=== PATIENT | female | born 1985 | race Caucasian/White ===

== ENCOUNTER 2018-09-27 01:19 | Inpatient (IN) | payer BC ==
[2018-09-27] MEDS ORDERED: Lactated Ringer's 1,000 ML IV ONE (02:16)
--- NOTE | 2018-09-27 02:42 | OBADHP ---
Datetime: 09/27/2018 02:28 Admit Comment, IP Provider: Patient is a @ 40+ weeks with leaking and contractions. +FM. Patien t confirmed ruptured and 4cm in early labor. Patient denies antepartum issues, no medical problmes, n o surgical problems, no allergies, no medications VE=/-2, ruptured clear [id number] mod louis, +accels, decels TOCO= ctxning q 3-5 mins A/P 1. Patient in labor and ROM, 4cm 2. IVF, CBC, type and screen 3. Pt requests epidural for pain Pelvic Type - PN: Adequate Extremities - PN: Normal Abdomen - PN: Normal Back - PN: Normal Breast - PN: Normal Lungs - PN: Normal Heart - PN: Normal Thyroid - PN: Normal Neurologic - PN: Normal HEENT - PN: Normal General - PN: Normal FHR - Baseline A Provider: 140 Amniotic Fluid Color, Provider: Clear Membranes, Provider: Ruptured Contraction Comments Provider: Q 3-5 mins Vital Signs Provider: Reviewed; Within Normal Limits IP Chief Complaint: Uterine contractions; Suspected ruptured membranes NICHD Variability Prov Fetus A: Moderate 6-25bpm NICHD Accel Fetus A IP Provider: 15X15 NICHD Decel Fetus A IP Provider: None Dilatation, Provider: 4 Effacement, Provider: 50 Station, Provider: -2 Genitourinary Exam: Normal DTRs - PN: Normal EGA AdmitDate IP: 40.2 IP Adm Impression: Term, intrauterine IP Admit Plan: Admit to unit; Initiate labor protocol
[2018-09-27 02:43] LABS: BASO % 0.3 % (0.0-2.0); EOS % 0.4 % (0.0-4.0); HEMOGLOBIN 12.1 g/dL (12.0-16.0); LYMPH # 1.8 K/uL (1.0-4.3); LYMPH % 15.5 % (20.0-40.0); MEAN CELL VOLUME 82.7 fl (81.0-99.0); MEAN CORPUSCULAR HEMOGLOBIN 27.3 pg (27.0-31.0); MEAN PLATELET VOLUME 9.2 fl (7.2-11.7); MONO # 0.8 K/uL (0.0-0.8); MONO % 6.7 % (0.0-10.0); NEUT # 9.1 K/uL (1.8-7.0); NEUT % 77.1 % (50.0-75.0); RBC 4.44 Mil/uL (3.80-5.20); RED CELL DISTRIBUTION WIDTH 13.7 % (11.5-14.5); WHITE BLOOD COUNT 11.8 K/uL (4.8-10.8)
[2018-09-27] MEDS ORDERED: Fentanyl/Bupivacaine HCl 250 ML EPI ONE (02:59)
[2018-09-27] MEDS: Lactated Ringer's 1,000 ML IV SCH ×2 (03:38→10:30)
[2018-09-27] MEDS ORDERED: Oxytocin 30 UNIT 30 UNITS/500 ML BAG IV ONE ×2 (04:20→06:50)
--- NOTE | 2018-09-27 11:02 | OBPN ---
Datetime: 09/27/2018 09:04 IP Progress Impression: Normal progression of labor; Reassuring heart rate IP Procedures: Sterile Vag Exam IP Progress Plan: Continue present management; Augmentation Pool Provider: Positive Membranes, Provider: Ruptured Contraction Comments Provider: + FHR - Baseline A Provider: 140 Gestation - Est Wks by US: 40.2 Presentation-Admit: Vertex IP Progress Note Comment: S: Pating lying in bed comfortably. Pain well controlled s/p epidural. O: SVE (By Dr. Jerez) 3cm/50%/-3 A: 33 y/o female @ 40.2 wk IUP; fetus in cephalic position based on bedside U/S. Latent phas e of labor. Patient does not have pre-tash records w/ her. P: Cont. to titrate pitocin 2mls/hr every 30 mins until contractions 2-3 mins apart. SCDs for DVT prophylaxis. Will contact [facility] to obtain records. Case discussed w/ attending, Dr. Solitario Gagnon, [facility] OB HOSPITALIST NOTE: sign out rec'd... just rc'd records from Dr Tran's office. 40w GBS neg - latent phase...continue Pitocin augmentatoin...discussed labor/meds/risks and complicatoins wi th patient. She understands and her questoins answered. Vital Signs Provider: Reviewed; Within Normal Limits NICHD Accel Fetus A IP Provider: 15X15 FHR Category Provider Fetus A: Category I NICHD Variability Prov Fetus A: Moderate 6-25bpm Dilatation, Provider: 3 Effacement, Provider: 50 Station, Provider: -3 NICHD Decel Fetus A IP Provider: None Datetime: 09/27/2018 02:28 Amniotic Fluid Color, Provider: Clear
[2018-09-27] MEDS ORDERED: Sodium Chloride 0.9% 500 ML IV SCH (14:00)
[2018-09-27] MEDS ORDERED: Sodium Chloride 0.9% 1,000 ML IV SCH (14:00)
--- NOTE | 2018-09-27 15:47 | OBPN ---
Datetime: 09/27/2018 13:52 Gestation - Est Wks by US: 40.2 Vital Signs Provider: Reviewed; Within Normal Limits NICHD Decel Fetus A IP Provider: Early Datetime: 09/27/2018 13:24 IP Progress Impression: Normal progression of labor IP Procedures: Sterile Vag Exam IP Progress Plan: Continue present management FHR - Baseline A Provider: 125 IP Progress Note Comment: S: Patient reports feeling pressure; pain controlled w/ epidural. O: SVE (Chaperoned by Nurse Farzana) 5cm/75%/-3 A: 33 y/o female @ 40.2 wk IUP P: Cont. present care/augmentation mckayla Irene Case discussed w/ attending OB Attending note Aware of progress MAHNDO NICHD Accel Fetus A IP Provider: 15X15 FHR Category Provider Fetus A: Category I NICHD Variability Prov Fetus A: Moderate 6-25bpm Dilatation, Provider: 5 Effacement, Provider: 75 Station, Provider: -3
--- NOTE | 2018-09-27 15:49 | OBPN ---
Datetime: 09/27/2018 13:52 IP Progress Note Comment: S: Patient reports feeling pressure; pain controlled w/ epidural. O: [place] shows contractions Q3-4mins, NST: early decels present A: 33 y/o female @ 40.2 wk IUP P: IUPC inserted, start amnio infusion; 500mL bolus of normal saline over 1 hour _ 1L NS @ 125mL t hrough IUPC. Cont. Pit. Ruth Gagnon pgyi Case discussed w/ attending OB hospitalist note. With deceleations, pioticn at 6mi/h, discussion with pt...will place IUPC/st art amnioinfusion...carolineior progress/FHR NIK
--- NOTE | 2018-09-27 16:58 | OBPN ---
Datetime: 09/27/2018 16:54 IP Progress Impression: Reassuring heart rate IP Progress Plan: Continue present management; Augmentation Pool Provider: Positive Membranes, Provider: Ruptured Amniotic Fluid Color, Provider: Clear Contraction Comments Provider: 2-3m FHR - Baseline A Provider: 120 IP Progress Note Comment: She feels some pressure. resting on her side with peanut ball btwn her le gs A: Latent phase of labor PLAN: Pitocin at 8miu/h...amnioinfusion running. monitor progress NICHD Accel Fetus A IP Provider: 15X15 FHR Category Provider Fetus A: Category I NICHD Variability Prov Fetus A: Moderate 6-25bpm Dilatation, Provider: 5 Effacement, Provider: 80 Station, Provider: -2 NICHD Decel Fetus A IP Provider: None
--- NOTE | 2018-09-27 21:24 | OBPN ---
Datetime: 09/27/2018 20:35 IP Progress Impression: Reassuring heart rate IP Progress Plan: Augmentation Contraction Comments Provider: 2-3m FHR - Baseline A Provider: 140 IP Progress Note Comment: She feels more pain/pressure. She did not know that she could press butto n for epidural dosing. SVE 6cm [address] in place/amnioinfusion running at 125cc/h Pitocin at 14miu/h A: Active phase of labor re-assuring FHR tracing PLAN: continue to monitor labor progress NICHD Accel Fetus A IP Provider: 15X15 FHR Category Provider Fetus A: Category I NICHD Variability Prov Fetus A: Moderate 6-25bpm Dilatation, Provider: 6 Effacement, Provider: 80 Station, Provider: -2 NICHD Decel Fetus A IP Provider: None
[2018-09-27] MEDS ORDERED: Lidocaine 2% PF (10 ml) Amp ONE (22:04)
[2018-09-27] MEDS ORDERED: Bupivacaine HCl 0.5% PF (30 ml) Inj ONE (22:05)
[2018-09-27] MEDS ORDERED: Propofol 10 mg/ml Inj (20 ML) ONE (22:06)
[2018-09-27] MEDS ORDERED: Morphine 5 mg/10 ml preservative-free Inj(Duramorph) ONE (22:07)
[2018-09-27] MEDS ORDERED: ceFAZolin IV 1 gm in Dextrose 2 GM/100 ML BAG IVPB ONE (22:11)
[2018-09-27] MEDS ORDERED: ceFAZolin 1 GM in Sodium Chloride 0.9% 100 ML IVPB ONE ×2 (22:12→23:01)
--- NOTE | 2018-09-27 22:12 | OBPN ---
Datetime: 09/27/2018 21:55 IP Progress Impression: Arrest of dilatation/descent IP Informed Consent Obtain: Section Delivery; Risks, Benefits and Alternatives Discussed IP Progress Plan: Deliver- Section Contraction Comments Provider: 2-3m FHR - Baseline A Provider: 130 IP Fetus A Comments: one variable noted Presentation-Admit: Vertex IP Progress Note Comment: SHe had repetitive decelerations earlier. Pitocin stopped and re-started at half the dose (7miu/h )...She was placed in lateral position with peanut ball. A: Failure of dilatoin PLAN: condition, procedure (C/S), risks/complications explained to pt. She understood. Her quest oins answered. Informed consent obtained. NICHD Accel Fetus A IP Provider: 15X15 FHR Category Provider Fetus A: Category I NICHD Variability Prov Fetus A: Moderate 6-25bpm Dilatation, Provider: 6 Effacement, Provider: 80 Station, Provider: -2 NICHD Decel Fetus A IP Provider: Variable
[2018-09-27] MEDS ORDERED: ePHEDrine 50 mg/ml Inj ONE (22:16)
[2018-09-27] MEDS ORDERED: Phenylephrine 10 mg/ml Inj ONE (22:16)
[2018-09-27] MEDS: ceFAZolin IV 1 gm in Dextrose 1 GM/50 ML BAG IVPB ONE ×2 (22:20→22:22)
[2018-09-27] MEDS ORDERED: Oxycodone/Acetaminophen 5/325 mg Tab PO PRN ×2 (23:06)
[2018-09-27] MEDS ORDERED: ceFAZolin 1 GM in Sodium Chloride 0.9% 50 ML IVPB ONE (23:09)
[2018-09-27] MEDS: OXYTOCIN/0.9 % NS 20 UNIT/1,000 ML BAG IV SCH ×2 (23:11→23:15)
[2018-09-27] MEDS ORDERED: Benzocaine/Menthol (Cepacol) Lozenge PO PRN (23:39)
[2018-09-28] MEDS ORDERED: Oxycodone/Acetaminophen 5/325 mg Tab PO PRN (02:17)
[2018-09-28] MEDS ORDERED: Benzocaine/Menthol (Cepacol) Lozenge PO PRN (02:17)
[2018-09-28] MEDS ORDERED: Lactated Ringer's 1,000 ML IV SCH (02:17)
[2018-09-28] MEDS: Oxycodone/Acetaminophen 5/325 mg Tab PO PRN ×2 (02:32→21:55)
[2018-09-28] MEDS ORDERED: Simethicone 80 mg Chewtab PO SCH (04:00)
[2018-09-28] MEDS: Simethicone 80 mg Chewtab PO SCH ×3 (04:30→21:54)
[2018-09-28 06:19] LABS: HEMOGLOBIN 9.9 g/dL (12.0-16.0); MEAN CORPUSCULAR HEMOGLOBIN 27.8 pg (27.0-31.0); MEAN CORPUSCULAR HGB CONC 33.2 g/dL (33.0-37.0); RBC 3.54 Mil/uL (3.80-5.20); RED CELL DISTRIBUTION WIDTH 13.7 % (11.5-14.5); WHITE BLOOD COUNT 15.4 K/uL (4.8-10.8)
[2018-09-28] MEDS: Multivitamin With Minerals Tab PO SCH (08:47)
[2018-09-28] MEDS ORDERED: Multivitamin With Minerals Tab PO SCH (09:00)
--- NOTE | 2018-09-28 09:03 | OBDS ---
DELIVERY PERSONNEL Delivery Doctor: Meena Jerez DO Credit Product Analyst: Angelika Zuniga RN Anesthesiologist: Maxim Sin MD Resident: Dallas Driver MD MATERNAL INFORMATION Delivery Anesthesia: Spinal Medications in Delivery: pitocin 30units/500 ml, ancef 2 grams Estimated Blood Loss (ml): 800 Placenta Cultured: No Maternal Complications: None Provider Comments: Pre Op Dx: failure of descent Post Op Dx same / Occiput posterior Procedure: Primary LTCS via Pfannenstiel incision Surgeon: Dr Jerez Asst: Dr Kris Gonzalez OB fellow Anesth: Dr Sin Anesth: Epidural Findings: -live infant delivered from [facility] [place] - OP -Infant crying sponteneously 9,9 -Placenta delivered intact spontaneously -ovaries and tubes WNL grossly -All equipment sponges needles accounted for -EBL 800cc She remained stable throughout the procedure (Annotations: Data stored by [facility] on behalf of user) LABOR SUMMARY EDC: 09/25/2018 00:00 No. Babies in Womb: 1 Attempted: No Labor Anesthesia: Intrathecal LABOR INFORMATION Reason for Induction: Not Applicable Onset of Labor: 09/26/2018 15:00 Oxytocin: Augmentation Group B Beta Strep: Negative (Annotations: 09/02/2018) Antibiotics # of Doses: 0 Antibiotics Time of Last Dose: n/a Steroids Given: None Reason Steroids Not Administered: Not Applicable MEMBRANES Membranes Rupture Method: Spontaneous Rupture of Membranes: 09/26/2018 22:00 Length of Rupture (hrs): 24.70 Amniotic Fluid Color: Clear Amniotic Fluid Amount: Small Amniotic Fluid Odor: Normal STAGES OF LABOR Stage 3 hrs: 0 Stage 3 min: 1 Total Time in Labor hrs: 31 Total Time in Labor min: 43 CSECTION DELIVERY Primary Indication: Failure of Descent Secondary Indication: Other Other Secondary Indication: Occiput Posterior CSection Urgency: Elective CSection Incidence: Primary Labor: Labor Elective: Elective CSection Incision: Classical Uterine Closure: Double-layer closure BABY A INFORMATION Infant Delivery Date/Time: 09/27/2018 22:42 Method of Delivery: Born in Route : No : N/A Forceps: N/A Vacuum Extraction: N/A Shoulder Dystocia : No SHOULDER DYSTOCIA BABY A Infant Delivery Date/Time: 09/27/2018 22:42 PRESENTATION/POSITION BABY A Presentation: Cephalic Cephalic Presentation: Vertex Breech Presentation: N/A PLACENTA INFORMATION BABY A Placenta Delivery Time : 09/27/2018 22:43 Placenta Method of Delivery: Spontaneous Placenta Status: Delivered SCORES BABY A Heart Rate 1 min: >100 bpm Resp Effort 1 min: Good Cry Reflex Irritability 1 min: Cough or Sneeze or Pulls Away Muscle Tone 1 min: Active Motion Color 1 min: Body [place], Extremities Blue Resuscitation Effort 1 min: Tactile Stimulation SCORE 1 MIN: 9 Heart Rate 5 min: >100 bpm Resp Effort 5 min: Good Cry Reflex Irritability 5 min: Cough or Sneeze or Pulls Away Muscle Tone 5 min: Active Motion Color 5 min: Body [place], Extremities Blue Resuscitation Effort 5 min: Tactile Stimulation SCORE 5 MIN: 9 INFANT INFORMATION BABY A Gestational Age at Delivery: 40.2 Gestational Status: Term Outcome : Liveborn Infant Condition : Stable Sex: Male IDENTIFICATION/MEDS BABY A ID Band Number: [id number] ID Band Location: Left Leg; Left Arm WEIGHT/LENGTH BABY A Infant Birthweight (gms): 4000 Weight (lb): 8 Infant Weight (oz): 13 CORD INFORMATION BABY A No. Cord Vessels: 3 Nuchal Cord : N/A Cord Blood Taken: Yes Infant Suction: None ASSESSMENT BABY A Infant Complications: None Physical Findings at Delivery: Within Normal Limits Respirations: Appears Normal Balance Assembler/ALS Called : No Infant Care By: Jagruti Carlton RN/ Dr. Lucas Transferred To: Remains with Mother
--- NOTE | 2018-09-28 09:04 | OBDS ---
DELIVERY PERSONNEL Delivery Doctor: Meena Jerez DO Mail Order Clerk: Angelika Zuniga RN Anesthesiologist: Maxim Sin MD Resident: Dallas Driver MD MATERNAL INFORMATION Delivery Anesthesia: Spinal Medications in Delivery: pitocin 30units/500 ml, ancef 2 grams Estimated Blood Loss (ml): 800 Placenta Cultured: No Maternal Complications: None Provider Comments: Pre Op Dx: failure of descent Post Op Dx same / Occiput posterior Procedure: Primary LTCS via Pfannenstiel incision Surgeon: Dr Jerez Asst: Dr Kris Gonzalez OB fellow Anesth: Dr Sin Anesth: Epidural Findings: -live infant delivered from [facility] [place] - OP -Infant crying sponteneously 9,9 -Placenta delivered intact spontaneously -ovaries and tubes WNL grossly -All equipment sponges needles accounted for -EBL 800cc She remained stable throughout the procedure (Annotations: Data stored by [facility] on behalf of user) LABOR SUMMARY EDC: 09/25/2018 00:00 No. Babies in Womb: 1 Attempted: No Labor Anesthesia: Intrathecal LABOR INFORMATION Reason for Induction: Not Applicable Onset of Labor: 09/26/2018 15:00 Oxytocin: Augmentation Group B Beta Strep: Negative (Annotations: 09/02/2018) Antibiotics # of Doses: 0 Antibiotics Time of Last Dose: n/a Steroids Given: None Reason Steroids Not Administered: Not Applicable MEMBRANES Membranes Rupture Method: Spontaneous Rupture of Membranes: 09/26/2018 22:00 Length of Rupture (hrs): 24.70 Amniotic Fluid Color: Clear Amniotic Fluid Color: Clear Amniotic Fluid Color: Clear Amniotic Fluid Amount: Small Amniotic Fluid Odor: Normal STAGES OF LABOR Stage 3 hrs: 0 Stage 3 min: 1 Total Time in Labor hrs: 31 Total Time in Labor min: 43 CSECTION DELIVERY Primary Indication: Failure of Descent Secondary Indication: Other Other Secondary Indication: Occiput Posterior CSection Urgency: Elective CSection Incidence: Primary Labor: Labor Elective: Elective CSection Incision: Classical Uterine Closure: Double-layer closure BABY A INFORMATION Infant Delivery Date/Time: 09/27/2018 22:42 Method of Delivery: Born in Route : No : N/A Forceps: N/A Vacuum Extraction: N/A Shoulder Dystocia : No SHOULDER DYSTOCIA BABY A Infant Delivery Date/Time: 09/27/2018 22:42 PRESENTATION/POSITION BABY A Presentation: Cephalic Presentation: Cephalic Presentation: Cephalic Presentation: Cephalic Cephalic Presentation: Vertex Breech Presentation: N/A PLACENTA INFORMATION BABY A Placenta Delivery Time : 09/27/2018 22:43 Placenta Method of Delivery: Spontaneous Placenta Status: Delivered SCORES BABY A Heart Rate 1 min: >100 bpm Resp Effort 1 min: Good Cry Reflex Irritability 1 min: Cough or Sneeze or Pulls Away Muscle Tone 1 min: Active Motion Color 1 min: Body [place], Extremities Blue Resuscitation Effort 1 min: Tactile Stimulation SCORE 1 MIN: 9 Heart Rate 5 min: >100 bpm Resp Effort 5 min: Good Cry Reflex Irritability 5 min: Cough or Sneeze or Pulls Away Muscle Tone 5 min: Active Motion Color 5 min: Body [place], Extremities Blue Resuscitation Effort 5 min: Tactile Stimulation SCORE 5 MIN: 9 INFANT INFORMATION BABY A Gestational Age at Delivery: 40.2 Gestational Status: Term Outcome : Liveborn Infant Condition : Stable Sex: Male IDENTIFICATION/MEDS BABY A ID Band Number: [id number] ID Band Location: Left Leg; Left Arm WEIGHT/LENGTH BABY A Infant Birthweight (gms): 4000 Weight (lb): 8 Weight (oz): 13 CORD INFORMATION BABY A No. Cord Vessels: 3 Nuchal Cord : N/A Cord Blood Taken: Yes Suction: None ASSESSMENT BABY A Infant Complications: None Physical Findings at Delivery: Within Normal Limits Respirations: Appears Normal Carton Forming Machine Operator/ALS Called : No Care By: Jagruti Carlton RN/ Dr. Lucas Transferred To: Remains with Mother
[2018-09-29] MEDS: Oxycodone/Acetaminophen 5/325 mg Tab PO PRN ×3 (03:59→12:25)
[2018-09-29] MEDS: Simethicone 80 mg Chewtab PO SCH ×4 (04:00→22:15)
[2018-09-29] MEDS: Multivitamin With Minerals Tab PO SCH (08:12)
--- NOTE | 2018-09-29 17:17 | OBPPN ---
Datetime: 09/29/2018 07:01 PP Pain Prov: Within normal limits PP Nausea Prov: Denies PP Flatus Prov: Yes PP BM Prov: No PP Breasts Prov: Not Done PP Heart Prov: Normal PP Lungs Prov: Normal PP Abdomen/Uterus Prov: Normal PP Lochia Prov: Not Done PP Vulva/Perineum Prov: Not Done PP CVA Tenderness Prov: Normal PP Extremities Prov: Normal PP C/S Incision Prov: Normal PP Progress Prov: Normal PP Impression Prov: Normal progression PP Plan Prov: Continue present management PP Progress Note Prov: 33y/o , 40.2 wks S/P C section due to failure to decent POD2 Patient seen and evaluated at bedside. Abdominal pain is well controlled with pain medications. Fo ginny removed, dressing present. Advance diet as tolerated. Lochia similar to menses. Reports passing f latus but no BM yet. Denies fever, chills, nausea, vomiting, diarrhea, CP, SOB. w/o dif ficulties. O: VSS GEN: Patient is comfortable. In no acute distress. Cardio: S1S2, no murmurs, gallops or rubs. Lungs: clear air entry sounds b/l, no wheezing Abdomen: BS+, tenderness to palpation. Dressing removed, Incision C/D/I, Uterus is firm and at the level of the umbilicus EXT: No edema, calves non-tender to palpation Assessment/Plan: 33 y/o , 40.2 wks S/P C section on POD2. - SCDs for DVT prophylaxis, encouraged ambulating - Percocet and Ibuprofen 600 mg for pain - Senokot for constipation - Simethicone 80 mg Q6 hr - Continue to encourage and ambulating - f/u CBC post op: 9.9/29.7 - Anticipated D/C on 09/30/18 --- Dallas Driver MD PGY-1 The patient was seen with the resident I agree with the note Vital Signs Provider PP: Reviewed; Within Normal Limits Datetime: 09/28/2018 06:37 PP Comments Phys Exam Prov: Fundus firm under umbilicus Incision clean/dry/intact
[2018-09-30] MEDS: Simethicone 80 mg Chewtab PO SCH ×4 (05:18→12:20)
[2018-09-30] MEDS: Oxycodone/Acetaminophen 5/325 mg Tab PO PRN (08:47)
[2018-09-30] MEDS: Multivitamin With Minerals Tab PO SCH (08:48)
[2018-10-01 01:26] VITALS: BP 138/86; PULSE 78; RESP 20; TEMP 98.6; O2SAT 98
--- NOTE | 2018-10-02 11:09 | OBDS ---
DELIVERY PERSONNEL Delivery Doctor: Meena Jerez DO Cardiac Sonographer: Angelika Zuniga RN Anesthesiologist: Maxim Sin MD Resident: Dallas Driver MD MATERNAL INFORMATION Delivery Anesthesia: Spinal Medications in Delivery: pitocin 30units/500 ml, ancef 2 grams Estimated Blood Loss (ml): 800 Placenta Cultured: No Maternal Complications: None Provider Comments: Pre Op Dx: failure of dilation Post Op Dx same / Occiput posterior Procedure: Primary LTCS via Pfannenstiel incision Surgeon: Dr Jerez Asst: Dr Kris Gonzalez OB fellow Anesth: Dr Sin Anesth: Epidural Findings: -live delivered from [facility] [place] - OP -Infant crying sponteneously 9,9 -Placenta delivered intact spontaneously -ovaries and tubes WNL grossly -All equipment sponges needles accounted for -EBL 800cc She remained stable throughout the procedure LABOR SUMMARY EDC: 09/25/2018 00:00 No. Babies in Womb: 1 Attempted: No Labor Anesthesia: Intrathecal LABOR INFORMATION Reason for Induction: Not Applicable Onset of Labor: 09/26/2018 15:00 Oxytocin: Augmentation Group B Beta Strep: Negative (Annotations: 09/02/2018) Antibiotics # of Doses: 0 Antibiotics Time of Last Dose: n/a Steroids Given: None Reason Steroids Not Administered: Not Applicable MEMBRANES Membranes Rupture Method: Spontaneous Rupture of Membranes: 09/26/2018 22:00 Length of Rupture (hrs): 24.70 Amniotic Fluid Color: Clear Amniotic Fluid Color: Clear Amniotic Fluid Color: Clear Amniotic Fluid Amount: Small Amniotic Fluid Odor: Normal STAGES OF LABOR Stage 3 hrs: 0 Stage 3 min: 1 Total Time in Labor hrs: 31 Total Time in Labor min: 43 CSECTION DELIVERY Primary Indication: Failure of Descent Secondary Indication: Other Other Secondary Indication: Occiput Posterior CSection Urgency: Elective CSection Incidence: Primary Labor: Labor Elective: Elective CSection Incision: Classical Uterine Closure: Double-layer closure BABY A INFORMATION Infant Delivery Date/Time: 09/27/2018 22:42 Method of Delivery: Born in Route : No : N/A Forceps: N/A Vacuum Extraction: N/A Shoulder Dystocia : No SHOULDER DYSTOCIA BABY A Infant Delivery Date/Time: 09/27/2018 22:42 PRESENTATION/POSITION BABY A Presentation: Cephalic Presentation: Cephalic Presentation: Cephalic Presentation: Cephalic Cephalic Presentation: Vertex Breech Presentation: N/A PLACENTA INFORMATION BABY A Placenta Delivery Time : 09/27/2018 22:43 Placenta Method of Delivery: Spontaneous Placenta Status: Delivered SCORES BABY A Heart Rate 1 min: >100 bpm Resp Effort 1 min: Good Cry Reflex Irritability 1 min: Cough or Sneeze or Pulls Away Muscle Tone 1 min: Active Motion Color 1 min: Body [place], Extremities Blue Resuscitation Effort 1 min: Tactile Stimulation SCORE 1 MIN: 9 Heart Rate 5 min: >100 bpm Resp Effort 5 min: Good Cry Reflex Irritability 5 min: Cough or Sneeze or Pulls Away Muscle Tone 5 min: Active Motion Color 5 min: Body [place], Extremities Blue Resuscitation Effort 5 min: Tactile Stimulation SCORE 5 MIN: 9 INFORMATION BABY A Gestational Age at Delivery: 40.2 Gestational Status: Term Infant Outcome : Liveborn Infant Condition : Stable Infant Sex: Male IDENTIFICATION/MEDS BABY A ID Band Number: [id number] ID Band Location: Left Leg; Left Arm WEIGHT/LENGTH BABY A Infant Birthweight (gms): 4000 Weight (lb): 8 Infant Weight (oz): 13 CORD INFORMATION BABY A No. Cord Vessels: 3 Nuchal Cord : N/A Cord Blood Taken: Yes Suction: None ASSESSMENT BABY A Complications: None Physical Findings at Delivery: Within Normal Limits Respirations: Appears Normal Harness Builder/ALS Called : No Care By: Jagruti Carlton RN/ Dr. Lucas Transferred To: Remains with Mother
== END 2018-09-30 20:18 | disposition home or self-care (01) | DRG 788 ==
LOC: H.EROB2 01:19 → H.L&D 02:16 → H.OB/GYN 09-28 02:15
PROVIDERS: ADMIT Obstetrics & Gynecology; ATTEND Obstetrics & Gynecology
PROC: 10D00Z1 Extraction of Products of Conception, Low, Open Approach (ICD-10-PCS; principal; 2018-09-27)
PROC: 4A1HXCZ Monitoring of Products of Conception, Cardiac Rate, External Approach (ICD-10-PCS; 2018-09-27)
DX: O76 Abnormality in fetal heart rate and rhythm complicating labor and delivery (principal); Z3A.40 40 weeks gestation of pregnancy; Z37.0 Single live birth; O62.0 Primary inadequate contractions; O32.4XX0 Maternal care for high head at term, not applicable or unspecified